=== PATIENT | female | born 1970 | race African-American/Black ===

== ENCOUNTER 2016-10-26 16:26 | Emergency (ER) | payer OTHER ==
[~2016-10-26] VITALS: Ht 160 cm; Wt 87.8 kg
[~2016-10-26 16:26] MED LIST: ALLEGRA-D 241 TABLET PO; FLEXERIL5 MG PO; MOBIC7.5 MG PO; PROVENTIL HFA6.7 GM IH; TESSALON PERLE100 MG PO; ZOFRAN4 MG PO; ZYRTEC10 M1 PO
[2016-10-26] MEDS ORDERED: VENTOLIN HFA18 GM IH (17:26)
[2016-10-26] MEDS ORDERED: ZITHROMAX Z-PA250 MG PO (17:26)
[2016-10-26 18:53] VITALS: BP 126/92
== END 2016-10-26 18:53 | disposition home or self-care (01) ==
LOC: EME 16:26
DX: J40 Bronchitis, not specified as acute or chronic (principal)
CPT/HCPCS: 71020; 99281; 99283